=== PATIENT | female | born 1985 | race Caucasian/White ===

== ENCOUNTER 2017-07-04 21:49 | Inpatient (IN) | payer BC ==
[2017-07-04] MEDS ORDERED: Lidocaine 1% 50 ML MDV INJECT PRN (22:18)
[2017-07-04] MEDS ORDERED: Nalbuphine 10 MG/1 ML Vial IVPUSH PRN (22:18)
[2017-07-04] MEDS ORDERED: Misoprostol 200 MCG Tab PO PRN (22:18)
[2017-07-04] MEDS ORDERED: Sodium Chloride 0.9% 10 ML Syringe FLUSH PRN (22:18)
[2017-07-04] MEDS ORDERED: Sodium Chloride 0.9% 2.5 ML Syringe FLUSH PRN (22:18)
[2017-07-04] MEDS ORDERED: Butorphanol 1 MG/ML SDV IVPUSH PRN (22:18)
[2017-07-04] MEDS ORDERED: Tranexamic Acid 1,000 MG in Sodium Chloride 0.9% 100 ML IV PRN (22:18)
[2017-07-04] MEDS ORDERED: Carboprost Tromethamine 250 MCG/1 ML Amp IM PRN (22:18)
[2017-07-04] MEDS ORDERED: Water For Irrigation,Sterile 1,000 ML Container IRR PRN (22:18)
[2017-07-04] MEDS ORDERED: Methylergonovine 0.2 MG/1 ML Amp IM PRN (22:18)
[2017-07-04] MEDS ORDERED: Terbutaline 1 MG/ML SDV SUBCUT PRN (22:18)
[2017-07-04] MEDS ORDERED: Oxytocin/0.9 % Sodium Chloride 30 UNIT/500 ML BAG IV SCH ×2 (22:30)
[2017-07-04] MEDS ORDERED: Misoprostol 25 MCG (1/4 of 100 MCG) Tab VAG SCH (22:30)
[2017-07-05] MEDS ORDERED: Misoprostol 25 MCG (1/4 of 100 MCG) Tab VAG PRN (05:00)
[2017-07-05] MEDS: Lactated Ringers 1,000 ML IV SCH ×4 (05:45→20:08)
--- NOTE | 2017-07-05 12:22 | PCM.PREANE ---
Preanesthetic Assessment - Anesthesia/Transfusion/Family Hx Anesthesia History: Prior Anesthesia Without Reaction Family History of Anesthesia Reaction: Other (see below) (brother "in law" (so not genetically related) from sedation starting with a "p" while undergoing an AVM repair - pt states that anesthesia just makes her nervious d/ t this situation) Transfusion History: No Prior Transfusion(s) Intubation History: Unknown - Review of Systems General: No Symptoms Pulmonary: No Symptoms Cardiovascular: Other (htn with ) Gastrointestinal: No Symptoms Neurological: No Symptoms Other: Reports: Anxiety - Physical Assessment NPO Status Date: 07/05/17 NPO Status Time: 13:10 (sips/chips) Blood Pressure: 155/87 Height: 5 ft 3 in Weight: 209 lb ASA Class: 2 Mental Status: Alert & Oriented x3 Airway Class: Mallampati = 2 Dentition: Reports: Normal Dentition Thyro-Mental Finger Breadths: 3 Mouth Opening Finger Breadths: 3 ROM/Head Extension: Full Lungs: Clear to Auscultation, Normal Respiratory Effort Cardiovascular: Regular Rate, Regular Rhythm - Lab Values: Laboratory Last Values WBC 10.64 K/uL (4.0-11.0) 07/04/17 22:35 RBC 3.71 M/uL (4.30-5.90) L 07/04/17 22:35 Hgb 11.0 g/dL (12.0-16.0) L 07/04/17 22:35 Hct 32.9 % (36.0-46.0) L 07/04/17 22:35 MCV 88.7 fL (80.0-98.0) 07/04/17 22:35 MCH 29.6 pg (27.0-32.0) 07/04/17 22:35 MCHC 33.4 g/dL (31.0-37.0) 07/04/17 22:35 RDW Std Deviation 45.4 fl (28.0-62.0) 07/04/17 22:35 RDW Coeff of Janna 14 % (11.0-15.0) 07/04/17 22:35 Plt Count 180 K/uL (150-400) 07/04/17 22:35 MPV 12.00 fL (7.40-12.00) 07/04/17 22:35 Nucleated RBC % 0.0 /100WBC 07/04/17 22:35 Nucleated RBCs # 0 K/uL 07/04/17 22:35 Blood Type O POSITIVE 07/04/17 22:35 Antibody Screen NEGATIVE 07/04/17 22:35 - Allergies Allergies/Adverse Reactions: Allergies Allergy/AdvReac Type Severity Reaction Status Date / Time No Known Allergies Allergy Verified 07/04/17 22:17 - Blood Blood Available: No Product(s) Available: None - Anesthesia Plan Free Text/Narrative:: Labor Epidural - Acknowledgements Pt an Appropriate Candidate for the Planned Anesthesia: Yes Alternatives and Risks of Anesthesia Discussed w Pt/Guardian: Yes Pt/Guardian Understands and Agrees with Anesthesia Plan: Yes PreAnesthesia Questionnaire HEENT History: Reports: None Cardiovascular History: Reports: Hypertension 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: Musculoskeletal History: Reports: None Psychiatric History: Reports: Anxiety - Past Surgical History HEENT Surgical History: Reports: Oral Surgery Cardiovascular Surgical History: Reports: None Musculoskeletal Surgical History: Reports: Other (See Below) Other Musculoskeletal Surgeries/Procedures:: bunionectomy - SUBSTANCE USE Smoking Status *Q: Former Smoker Tobacco Use Within Last Twelve Months: Cigarettes Days Per Week of Alcohol Use: 1 Number of Drinks Per Day: 4 Total Drinks Per Week: 4 Recreational Drug Use History: No - HOME MEDS Home Medications: Home Meds PNV95/Ferrous Fumarate/FA [ Tablet] 1 tab PO DAILY 07/04/17 [History] - CURRENT (IN HOUSE) MEDS Current Meds: Current Medications Butorphanol Tartrate (Stadol) 1 mg IVPUSH Q1H PRN PRN Reason: Pain Carboprost Tromethamine (Hemabate Ds) 250 mcg IM ASDIRECTED PRN PRN Reason: Post Hemorrhage Lactated Ringer's (Ringers, Lactated) 1,000 mls @ 150 mls/hr IV ASDIRECTED NICOLE Last Admin: 07/05/17 05:45 Dose: 150 mls/hr Oxytocin/Sodium Chloride (Oxytocin 30 Unit/500 Ml-Ns) 30 unit in 500 mls @ 999 mls/hr IV TITRATE NICOLE Oxytocin/Sodium Chloride (Oxytocin 30 Unit/500 Ml-Ns) 30 unit in 500 mls @ 2 mls/hr IV TITRATE NICOLE; Protocol Last Titration: 07/05/17 10:54 Dose: 4 munits/min, 4 mls/hr Tranexamic Acid 1,000 mg/ (Sodium Chloride) 110 mls @ 660 mls/hr IV ONETIME PRN PRN Reason: Bleeding Lidocaine HCl (Xylocaine 1%) 50 ml INJECT .ONCE PRN PRN Reason: Laceration repair Methylergonovine Maleate (Methergine) 0.2 mg IM ASDIRECTED PRN PRN Reason: Post Hemorrhage Misoprostol (Cytotec) 200 mcg PO .ONCE PRN PRN Reason: Post Hemorrhage Misoprostol (Cytotec) 25 mcg VAG .ONCE NICOLE Last Admin: 07/04/17 23:04 Dose: 25 mcg Misoprostol (Cytotec) 25 mcg VAG Q6H PRN PRN Reason: Cervical Ripening Nalbuphine HCl (Nubain) 10 mg IVPUSH Q1H PRN PRN Reason: Pain (severe 7-10) Sodium Chloride (Saline Flush) 10 ml FLUSH ASDIRECTED PRN PRN Reason: Keep Vein Open Sodium Chloride (Saline Flush) 2.5 ml FLUSH ASDIRECTED PRN PRN Reason: Keep Vein Open Sterile Water (Sterile Water For Irrigation) 1,000 ml IRR ASDIRECTED PRN PRN Reason: delivery Terbutaline Sulfate (Brethine) 0.25 mg SUBCUT ASDIRECTED PRN PRN Reason: Tacysystole
[2017-07-05] MEDS ORDERED: fentaNYL 100 MCG/2 ML SDV ONE (12:24)
--- NOTE | 2017-07-05 20:50 | PCM.SN ---
- Free Text/Narrative Note: Pt using PCEA bolus frequently. c/o pain around T12 flank area. Level noted to be T 10 bilat. rate increased to 9ml/hr with bolus option of 5 ml/10 min hourly limit of 32 ml.
[2017-07-06] MEDS: Lactated Ringers 1,000 ML IV SCH (00:12)
[2017-07-06] MEDS ORDERED: Morphine PF 1 MG/ML Amp ONE (01:10)
[2017-07-06] MEDS ORDERED: fentaNYL 100 MCG/2 ML SDV ONE ×2 (01:10→02:08)
[2017-07-06] MEDS ORDERED: ePHEDrine 50 MG/ML SDV ONE (01:11)
[2017-07-06] MEDS ORDERED: EPINEPHrine 1 MG/ML SDV ONE (01:11)
[2017-07-06] MEDS ORDERED: Oxytocin 10 Units/1 ML SDV ONE (01:11)
[2017-07-06] MEDS ORDERED: Bupivacaine 0.5% 10 ML SDV ONE (01:17)
[2017-07-06] MEDS ORDERED: Carboprost Tromethamine 250 MCG/1 ML Amp ONE (01:43)
[2017-07-06] MEDS ORDERED: Phenylephrine/Normal Saline 100 MCG/ML 10 ML Syringe ONE (02:07)
[2017-07-06] MEDS ORDERED: Midazolam 1 MG/ML 2 ML SDV ONE (02:08)
[2017-07-06] MEDS ORDERED: Meperidine PF 25 MG/ML Syringe ONE (02:11)
[2017-07-06] MEDS ORDERED: Acetaminophen/oxyCODONE 325-5 MG Tab PO PRN ×2 (02:44→02:49)
[2017-07-06] MEDS ORDERED: Nalbuphine 10 MG/1 ML Vial IVPUSH PRN (02:46)
[2017-07-06] MEDS ORDERED: fentaNYL 100 MCG/2 ML SDV IVPUSH PRN (02:46)
[2017-07-06] MEDS ORDERED: Ondansetron 4 MG/2 ML SDV IV PRN (02:49)
[2017-07-06] MEDS ORDERED: Sodium Chloride 0.9% 10 ML Syringe FLUSH PRN (02:49)
[2017-07-06] MEDS ORDERED: Bisacodyl 10 MG Supp RECTAL PRN (02:49)
[2017-07-06] MEDS ORDERED: diphenhydrAMINE 50 MG/ML SDV IVPUSH PRN (02:49)
[2017-07-06] MEDS ORDERED: Lanolin 100% Cream 7 GM Tube TOP PRN (02:49)
[2017-07-06] MEDS ORDERED: Sodium Chloride 0.9% 2.5 ML Syringe FLUSH PRN (02:49)
[2017-07-06] MEDS ORDERED: Lactated Ringers 1,000 ML IV SCH (03:00)
[2017-07-06] MEDS ORDERED: Ketorolac 30 MG/ML SDV ONE (03:04)
--- NOTE | 2017-07-06 03:04 | PCM.OPNOTE ---
- General Post-Op/Procedure Note Date of Surgery/Procedure: 07/06/17 Operative Procedure(s): Emergency Primary section Findings: Male, Wt 3580grams, Apgars 7 and 9. Grossly normal placenta with 3 vessel cord. Normal appearing uterus, tubes and ovaries Pre Op Diagnosis: 38 weeks gestation,. Arrest of dilatation. Gestational Hypertension. Polyhydramnios Post-Op Diagnosis: Same Anesthesia Technique: Epidural Primary Surgeon: Shira Feliciano Fluid Replacement, Intraop: 1,000 Output, Urine Amount: 500 EBL in mLs: 700 Complications: None Condition: Good Free Text/Narrative:: Intake & Output 07/05/17 07/05/17 07/06/17 14:59 22:59 06:59 Output Total 500 Balance -500
--- NOTE | 2017-07-06 03:07 | PCM.POSTAN ---
POST ANESTHESIA ASSESSMENT - MENTAL STATUS Mental Status: Alert, Oriented - VITAL SIGNS Pulse Rate: 105 SaO2: 98 Resp Rate: 10 Blood Pressure: 118/73 - RESPIRATORY Respiratory Status: Respiratory Rate WNL, Airway Patent, O2 Saturation Stable - CARDIOVASCULAR CV Status: Pulse Rate WNL, Blood Pressure Stable - GASTROINTESTINAL GI Status: No Symptoms - PAIN Pain Score: 0 - POST OP HYDRATION Hydration Status: Adequate & Stable (epidural level T5, moves legs)
[2017-07-06] MEDS: Ketorolac 30 MG/ML SDV IVPUSH SCH ×4 (03:14→21:13)
--- NOTE | 2017-07-06 04:21 | OR ---
SURGEON: Shira Felciiano MD DATE OF PROCEDURE: 07/06/2017 PREOPERATIVE DIAGNOSES: 1. Term at 38 weeks' gestation. 2. Arrest of dilatation. 3. Gestational hypertension. 4. Polyhydramnios. POSTOPERATIVE DIAGNOSES: 1. Term at 38 weeks' gestation. 2. Arrest of dilatation. 3. Gestational hypertension. 4. Polyhydramnios. 5. Delivered. ANESTHESIA: Epidural. ESTIMATED BLOOD LOSS: 700 mL. IV FLUIDS: 1000 mL intraoperatively, crystalloid. URINE OUTPUT: 500 mL, slightly blood tinged at the end of the procedure. COMPLICATIONS: None. DISPOSITION: The patient stable to recovery room. FINDINGS: Male , weight 3580 g, scores of 7 and 9 at 1 and 5 minutes respectively. Normal uterus, tubes, and ovaries. Grossly normal placenta with 3-vessel cord. INDICATION: The patient is a 32-year-old primigravida, who was admitted at 37 weeks and 5 days for induction of labor secondary to gestational hypertension with negative preeclampsia evaluation.Her course was also complicated by polyhydramnios, which had resolved spontaneously. GBS was negative. She received a few doses of Cytotec and also had the Dowling balloon placed for cervical ripening, which was then followed with oxytocin. She made slow progress to 6 cm, where she stalled for more than 6 hours despite adequate contractions with an IUPC on maximum dose 34 milliunits per minute of oxytocin. head was in ROT position and asynclitic. heart tracing alternated between Category 1 and 2, but on the most part remained a Category 1. Although her blood pressures were labile, they were never in the severe range requiring antihypertensives and she remained asymptomatic She for preeclampsia during the intrapartum period. section was called for arrest of dilatation. Risks of the procedure were reviewed and appropriate consents were obtained from the patient. DESCRIPTION OF PROCEDURE: The patient was taken to the operating room, where her epidural was found to be adequate. She was then prepped and draped in a normal sterile fashion in dorsal supine position with a leftward tilt. She received Ancef 2 g, SCDs in place and appropriate time-out was held. A Pfannenstiel skin incision was made with a scalpel and carried through to the underlying layer of the fascia with the Bovie. The fascia was then incised in the midline and extended laterally with the Bovie. The superior aspect of this fascial incision was grasped with Dallas clamps, elevated, and the rectus muscle dissected off with the Bovie. Attention was then turned to the inferior aspect of this incision, which in similar fashion was grasped, tented up with the Dallas clamps, and underlying rectus muscles were dissected off with the Bovie. The rectus muscle was in the midline and the parietal peritoneum was identified and entered bluntly. The peritoneal defect was then extended laterally by stretching. A self-retaining Valentín O retractor was placed into the abdominal cavity. The vesicouterine peritoneum was identified, grasped with pickups, and entered sharply with the Metzenbaum scissors. This incision was extended laterally and a bladder flap was created digitally. The lower uterine segment was then incised in a transverse fashion with the scalpel. The uterine incision was extended upwards and downwards bluntly. The infant head was lifted out of the pelvis and then delivered with the aid of a kiwi vacuum, followed by the shoulders and the rest of the baby delivered atraumatically. The cord was double clamped and cut, and the infant was handed over to the waiting lugger, Dr. Steve. Cord gas and cord blood samples were collected. The placenta was delivered by controlled cord traction and massage. The uterus was cleaned of all clots and debris. The hysterotomy was repaired in two layers using 0 Vicryl suture, the first layer was repaired in a running locked fashion and a second imbricating layer was performed to obtain excellent hemostasis. One hemostatic figure-of- eight stitch was placed midway in the lower uterine segment to control a bleeder The hysterotomy site was hemostatic thereafter. The pericolic gutters were cleaned of all clots and debris. The Valentín O retractor was removed. The peritoneal edges were identified and the peritoneum was closed with 2-0 Vicryl sutures in a running fashion. The muscular layer was reapproximated with mattress sutures. The subfascial tissues were examined and found to have excellent hemostasis. The fascia was then reapproximated with 0 Vicryl in a running fashion. The subcuticular tissue was irrigated and made hemostatic with electrocautery. The skin was closed with subcuticular stitches using 4-0 Monocryl suture. The patient tolerated the procedure well. Sponge, instrument, and needle counts were correct at the end of the procedure. The patient was taken to the recovery in a stable condition and baby to nursery in stable condition. ADUMVIV / MAZINL /[id number] MTDD
[2017-07-06] MEDS: Docusate Sodium 100 MG Cap PO SCH ×2 (09:30→21:14)
--- NOTE | 2017-07-06 10:29 | PCM48HPAN ---
Post Anesthesia Note - EVALUATION WITHIN 48HRS OF ANESTHETIC Vital Signs in Normal Range: Yes Patient Participated in Evaluation: Yes Respiratory Function Stable: Yes Airway Patent: Yes Cardiovascular Function Stable: Yes Hydration Status Stable: Yes Pain Control Satisfactory: Yes Nausea and Vomiting Control Satisfactory: Yes Mental Status Recovered: Yes Pulse Rate: 105 Resp Rate: 17 Blood Pressure: 118/73
[2017-07-07] MEDS: Ketorolac 30 MG/ML SDV IVPUSH SCH (03:11)
[2017-07-07 06:03] LABS: CHLORIDE,CL 105 mmol/L (98-107); SODIUM,NA 136 mmol/L (136-145)
--- NOTE | 2017-07-07 07:24 | PCM.PNPP ---
- General Info Date of Service: 07/07/17 Admission Dx/Problem (Free Text): 32 yo P1 s/p primary for AOD , POD 1 , stable Subjective Update: Patient denies any complains. she is ambulating , voiding and tolerating regular diet. Normal lochia Labs reviewed this AM K: 3.2 Functional Status: Reports: Pain Controlled, Tolerating Diet, Ambulating, Urinating - Review of Systems General: Reports: No Symptoms HEENT: Reports: No Symptoms Pulmonary: Reports: No Symptoms Cardiovascular: Reports: No Symptoms Gastrointestinal: Reports: No Symptoms Genitourinary: Reports: No Symptoms Musculoskeletal: Reports: No Symptoms Skin: Reports: No Symptoms Neurological: Reports: No Symptoms Psychiatric: Reports: No Symptoms - General Info Date of Service: 07/07/17 - Patient Data Vital Signs - Most Recent: Last Vital Signs Temp 36.6 C 07/07/17 06:00 Pulse 97 07/07/17 06:00 Resp 16 07/07/17 06:00 BP 144/90 H 07/07/17 06:00 Pulse Ox 98 07/07/17 06:00 Weight - Most Recent: 94.801 kg I&O - Last 24 Hours: Intake & Output 07/06/17 07/07/17 07/07/17 22:59 06:59 14:59 Output Total 700 Balance -700 Lab Results - Last 24 Hours: Laboratory Results - last 24 hr 07/07/17 07/07/17 Range/Units 05:27 05:27 WBC 11.60 H (4.0-11.0) K/uL RBC 2.78 L (4.30-5.90) M/uL Hgb 8.2 L (12.0-16.0) g/dL Hct 24.8 L (36.0-46.0) % MCV 89.2 (80.0-98.0) fL MCH 29.5 (27.0-32.0) pg MCHC 33.1 (31.0-37.0) g/dL RDW Std Deviation 47.6 (28.0-62.0) fl RDW Coeff of Janna 15 (11.0-15.0) % Plt Count 166 (150-400) K/uL MPV 10.90 (7.40-12.00) fL Nucleated RBC % 0.0 /100WBC Nucleated RBCs # 0 K/uL Sodium 136 (136-145) mmol/L Potassium 3.2 L (3.5-5.1) mmol/L Chloride 105 (98-107) mmol/L Carbon Dioxide 23.5 (21.0-32.0) mmol/L BUN 12 (7.0-18.0) mg/dL Creatinine 1.0 (0.6-1.0) mg/dL Est Cr Clr Drug Dosing 66.81 mL/min Estimated GFR (MDRD) > 60.0 ml/min Glucose 73 L (74-106) mg/dL Calcium 7.9 L (8.5-10.1) mg/dL Total Bilirubin 0.2 (0.2-1.0) mg/dL AST 33 (15-37) IU/L ALT 12 L (14-63) IU/L Alkaline Phosphatase 87 (46-116) U/L Total Protein 5.0 L (6.4-8.2) g/dL Albumin 1.9 L (3.4-5.0) g/dL Globulin 3.1 (2.0-3.5) g/dL Albumin/Globulin Ratio 0.6 L (1.3-2.8) Med Orders - Current: Current Medications Bisacodyl (Dulcolax) 10 mg RECTAL .ONCE PRN PRN Reason: Constipation Diphenhydramine HCl (Benadryl) 25 mg IVPUSH Q6H PRN PRN Reason: Itching or Nausea Docusate Sodium (Colace) 100 mg PO BID [facility] Last Admin: 07/06/17 21:14 Dose: 100 mg Emollient Ointment (Lansinoh Hpa) 0 gm TOP ASDIRECTED PRN PRN Reason: Sore Nipples Lactated Ringer's (Ringers, Lactated) 1,000 mls @ 125 mls/hr IV ASDIRECTED [facility] Ibuprofen (Motrin) 800 mg PO Q8H PRN PRN Reason: mild pain or fever Ondansetron HCl (Zofran) 4 mg IV Q4H PRN PRN Reason: Nausea/Vomiting Oxycodone/Acetaminophen (Percocet 325-5 Mg) 1 tab PO Q4H PRN PRN Reason: Pain (moderate 4-6) Oxycodone/Acetaminophen (Percocet 325-5 Mg) 2 tab PO Q4H PRN PRN Reason: Pain (moderate 4-6) Potassium Chloride (Klor-Con M20) 20 meq PO BID [facility] Stop: 07/07/17 21:01 Sodium Chloride (Saline Flush) 10 ml FLUSH ASDIRECTED PRN PRN Reason: Keep Vein Open Sodium Chloride (Saline Flush) 2.5 ml FLUSH ASDIRECTED PRN PRN Reason: Keep Vein Open Discontinued Medications Bupivacaine HCl (Sensorcaine-Mpf 0.5%) Confirm Administered Dose 30 ml .ROUTE .STK-MED ONE Stop: 07/06/17 01:18 Last Admin: 07/06/17 04:03 Dose: Not Given Butorphanol Tartrate (Stadol) 1 mg IVPUSH Q1H PRN PRN Reason: Pain Carboprost Tromethamine (Hemabate Ds) 250 mcg IM ASDIRECTED PRN PRN Reason: Post Hemorrhage Carboprost Tromethamine (Hemabate Ds) Confirm Administered Dose 250 mcg .ROUTE .STK-MED ONE Stop: 07/06/17 01:44 Ephedrine Sulfate (Ephedrine Sulfate) Confirm Administered Dose 50 mg .ROUTE .STK-MED ONE Stop: 07/06/17 01:12 Epinephrine HCl (Adrenalin) Confirm Administered Dose 1 mg .ROUTE .STK-MED ONE Stop: 07/06/17 01:12 Fentanyl (Sublimaze) Confirm Administered Dose 100 mcg .ROUTE .STK-MED ONE Stop: 07/05/17 12:25 Last Admin: 07/05/17 20:22 Dose: Not Given Fentanyl (Sublimaze) Confirm Administered Dose 100 mcg .ROUTE .STK-MED ONE Stop: 07/06/17 01:11 Fentanyl (Sublimaze) Confirm Administered Dose 100 mcg .ROUTE .STK-MED ONE Stop: 07/06/17 02:09 Fentanyl (Sublimaze) 50 mcg IVPUSH Q5M PRN PRN Reason: Pain (severe 7-10) Stop: 07/06/17 04:00 Lactated Ringer's (Ringers, Lactated) 1,000 mls @ 150 mls/hr IV ASDIRECTED NICOLE Last Admin: 07/06/17 00:12 Dose: 150 mls/hr Oxytocin/Sodium Chloride (Oxytocin 30 Unit/500 Ml-Ns) 30 unit in 500 mls @ 999 mls/hr IV TITRATE NICOLE Oxytocin/Sodium Chloride (Oxytocin 30 Unit/500 Ml-Ns) 30 unit in 500 mls @ 2 mls/hr IV TITRATE [facility]; Protocol Last Titration: 07/05/17 22:19 Dose: 34 munits/min, 34 mls/hr Tranexamic Acid 1,000 mg/ (Sodium Chloride) 110 mls @ 660 mls/hr IV ONETIME PRN PRN Reason: Bleeding Fentanyl/Bupivacaine HCl (Myboawhr-Hlwyc-Vt 2 Mcg/Ml-0.125%) Confirm Administered Dose 100 mls @ as directed EP .STK-MED ONE Stop: 07/05/17 12:25 Last Admin: 07/05/17 20:22 Dose: Not Given Fentanyl/Bupivacaine HCl (Lhjlnifq-Cffkw-Am 2 Mcg/Ml-0.125%) Confirm Administered Dose 100 mls @ as directed EP .STK-MED ONE Stop: 07/05/17 20:37 Last Admin: 07/05/17 22:11 Dose: Not Given Ketorolac Tromethamine (Toradol) 30 mg IVPUSH Q6H [facility] Stop: 07/07/17 03:01 Last Admin: 07/07/17 03:11 Dose: 30 mg Ketorolac Tromethamine (Toradol) Confirm Administered Dose 30 mg .ROUTE .STK- MED ONE Stop: 07/06/17 03:05 Last Admin: 07/06/17 04:03 Dose: Not Given Lidocaine HCl (Xylocaine 1%) 50 ml INJECT .ONCE PRN PRN Reason: Laceration repair Meperidine HCl (Demerol) Confirm Administered Dose 25 mg .ROUTE .STK-MED ONE Stop: 07/06/17 02:12 Methylergonovine Maleate (Methergine) 0.2 mg IM ASDIRECTED PRN PRN Reason: Post Hemorrhage Midazolam HCl (Versed 1 Mg/Ml) Confirm Administered Dose 2 mg .ROUTE .STK-MED ONE Stop: 07/06/17 02:09 Misoprostol (Cytotec) 200 mcg PO .ONCE PRN PRN Reason: Post Hemorrhage Misoprostol (Cytotec) 25 mcg VAG .ONCE NICOLE Last Admin: 07/04/17 23:04 Dose: 25 mcg Misoprostol (Cytotec) 25 mcg VAG Q6H PRN PRN Reason: Cervical Ripening Morphine Sulfate (Duramorph Pf) Confirm Administered Dose 1 mg .ROUTE .STK-MED ONE Stop: 07/06/17 01:11 Nalbuphine HCl (Nubain) 10 mg IVPUSH Q1H PRN PRN Reason: Pain (severe 7-10) Nalbuphine HCl (Nubain) 5 mg IVPUSH Q3H PRN PRN Reason: Pruritis Stop: 07/07/17 02:46 Oxycodone/Acetaminophen (Percocet 325-5 Mg) 1 tab PO Q6H PRN PRN Reason: Pain (moderate 4-6) Stop: 07/07/17 02:44 Oxytocin (Pitocin) Confirm Administered Dose 20 unit .ROUTE .STK-MED ONE Stop: 07/06/17 01:12 Phenylephrine HCl (Phenylephrine In Ns 100 Mcg/Ml) Confirm Administered Dose 1 mg .ROUTE .STK-MED ONE Stop: 07/06/17 02:08 Sodium Chloride (Saline Flush) 10 ml FLUSH ASDIRECTED PRN PRN Reason: Keep Vein Open Sodium Chloride (Saline Flush) 2.5 ml FLUSH ASDIRECTED PRN PRN Reason: Keep Vein Open Sterile Water (Sterile Water For Irrigation) 1,000 ml IRR ASDIRECTED PRN PRN Reason: delivery Terbutaline Sulfate (Brethine) 0.25 mg SUBCUT ASDIRECTED PRN PRN Reason: Tacysystole - Infant Interaction Infant Disposition, : at Bedside Interaction: Holding Infant Feeding: Continues to Breastfeed Support Person: - Recovery Exam Fundal Tone: Firm Fundal Level: At Umbilicus Fundal Placement: Midline Lochia Amount: Scant Lochia Color: Rubra/Red Perineum Description: Intact, Minimal Bruising/Swelling Episiotomy/Laceration: None Bladder Status: Voiding Urinary Elimination: Indwelling Catheter - Exam General: Alert, Oriented HEENT: Pupils Equal Lungs: Clear to Auscultation Cardiovascular: Regular Rate, Regular Rhythm GI/Abdominal Exam: Normal Bowel Sounds (Pfannestiel skin incision with c/d/i ) Extremities: Normal Inspection Skin: Warm Neurological: No New Focal Deficit Psy/Mental Status: Alert - Problem List & Annotations (1) delivery delivered SNOMED Code(s): 159082951 Code(s): O82 - ENCOUNTER FOR DELIVERY WITHOUT INDICATION Status: Acute Current Visit: Yes - Problem List Review Problem List Initiated/Reviewed/Updated: Yes - My Orders Last 24 Hours: My Active Orders 07/07/17 09:00 Potassium Chloride [Klor-Con M20] 20 meq PO BID - Assessment Assessment:: 32 yo P1 s/p primary for arrest of dilatation, Gestational Hypertension, Normal Lochia - Plan Plan:: Will replace potassium Pain control as needed Encourage ambulation Regular diet
[2017-07-07] MEDS: Docusate Sodium 100 MG Cap PO SCH ×2 (10:15→22:25)
[2017-07-07] MEDS: Potassium Chloride 20 MEQ Tab.ER PO SCH ×2 (10:15→22:27)
[2017-07-07] MEDS: Ibuprofen 800 MG Tab PO PRN (16:45)
[2017-07-07] MEDS: Acetaminophen/oxyCODONE 325-5 MG Tab PO PRN (22:25)
[2017-07-08] MEDS: Acetaminophen/oxyCODONE 325-5 MG Tab PO PRN ×2 (07:30→16:04)
[2017-07-08] MEDS: Docusate Sodium 100 MG Cap PO SCH (09:01)
[2017-07-08] MEDS ORDERED: Furosemide 20 MG Tab PO ONE (10:29)
--- NOTE | 2017-07-08 10:29 | PCM.PNPP ---
- General Info Date of Service: 07/08/17 Functional Status: Reports: Pain Controlled, Tolerating Diet, Ambulating, Urinating - Review of Systems General: Reports: Fatigue. Denies: Fever, Weakness Pulmonary: Denies: Shortness of Breath Cardiovascular: Denies: Chest Pain, Palpitations, Lightheadedness Gastrointestinal: Denies: Abdominal Pain, Nausea, Vomiting Genitourinary: Denies: Flank Pain Psychiatric: Reports: No Symptoms - General Info Date of Service: 07/08/17 - Patient Data Vital Signs - Most Recent: Last Vital Signs Temp 36.8 C 07/08/17 07:41 Pulse 92 07/08/17 07:41 Resp 17 07/08/17 07:41 BP 143/99 H 07/08/17 09:43 Pulse Ox 98 07/08/17 07:41 Weight - Most Recent: 94.801 kg Med Orders - Current: Current Medications Bisacodyl (Dulcolax) 10 mg RECTAL .ONCE PRN PRN Reason: Constipation Diphenhydramine HCl (Benadryl) 25 mg IVPUSH Q6H PRN PRN Reason: Itching or Nausea Docusate Sodium (Colace) 100 mg PO BID NICOLE Last Admin: 07/08/17 09:01 Dose: 100 mg Emollient Ointment (Lansinoh Hpa) 0 gm TOP ASDIRECTED PRN PRN Reason: Sore Nipples Lactated Ringer's (Ringers, Lactated) 1,000 mls @ 125 mls/hr IV ASDIRECTED NICOLE Ibuprofen (Motrin) 800 mg PO Q8H PRN PRN Reason: mild pain or fever Last Admin: 07/07/17 16:45 Dose: 800 mg Ondansetron HCl (Zofran) 4 mg IV Q4H PRN PRN Reason: Nausea/Vomiting Oxycodone/Acetaminophen (Percocet 325-5 Mg) 1 tab PO Q4H PRN PRN Reason: Pain (moderate 4-6) Last Admin: 07/08/17 07:30 Dose: 1 tab Oxycodone/Acetaminophen (Percocet 325-5 Mg) 2 tab PO Q4H PRN PRN Reason: Pain (moderate 4-6) Sodium Chloride (Saline Flush) 10 ml FLUSH ASDIRECTED PRN PRN Reason: Keep Vein Open Sodium Chloride (Saline Flush) 2.5 ml FLUSH ASDIRECTED PRN PRN Reason: Keep Vein Open Discontinued Medications Bupivacaine HCl (Sensorcaine-Mpf 0.5%) Confirm Administered Dose 30 ml .ROUTE .STK-MED ONE Stop: 07/06/17 01:18 Last Admin: 07/06/17 04:03 Dose: Not Given Butorphanol Tartrate (Stadol) 1 mg IVPUSH Q1H PRN PRN Reason: Pain Carboprost Tromethamine (Hemabate Ds) 250 mcg IM ASDIRECTED PRN PRN Reason: Post Hemorrhage Carboprost Tromethamine (Hemabate Ds) Confirm Administered Dose 250 mcg .ROUTE .STK-MED ONE Stop: 07/06/17 01:44 Ephedrine Sulfate (Ephedrine Sulfate) Confirm Administered Dose 50 mg .ROUTE .STK-MED ONE Stop: 07/06/17 01:12 Epinephrine HCl (Adrenalin) Confirm Administered Dose 1 mg .ROUTE .STK-MED ONE Stop: 07/06/17 01:12 Fentanyl (Sublimaze) Confirm Administered Dose 100 mcg .ROUTE .STK-MED ONE Stop: 07/05/17 12:25 Last Admin: 07/05/17 20:22 Dose: Not Given Fentanyl (Sublimaze) Confirm Administered Dose 100 mcg .ROUTE .STK-MED ONE Stop: 07/06/17 01:11 Fentanyl (Sublimaze) Confirm Administered Dose 100 mcg .ROUTE .STK-MED ONE Stop: 07/06/17 02:09 Fentanyl (Sublimaze) 50 mcg IVPUSH Q5M PRN PRN Reason: Pain (severe 7-10) Stop: 07/06/17 04:00 Lactated Ringer's (Ringers, Lactated) 1,000 mls @ 150 mls/hr IV ASDIRECTED NICOLE Last Admin: 07/06/17 00:12 Dose: 150 mls/hr Oxytocin/Sodium Chloride (Oxytocin 30 Unit/500 Ml-Ns) 30 unit in 500 mls @ 999 mls/hr IV TITRATE NICOLE Oxytocin/Sodium Chloride (Oxytocin 30 Unit/500 Ml-Ns) 30 unit in 500 mls @ 2 mls/hr IV TITRATE NICOLE; Protocol Last Titration: 07/05/17 22:19 Dose: 34 munits/min, 34 mls/hr Tranexamic Acid 1,000 mg/ (Sodium Chloride) 110 mls @ 660 mls/hr IV ONETIME PRN PRN Reason: Bleeding Fentanyl/Bupivacaine HCl (Oziiuawv-Lzrul-Ps 2 Mcg/Ml-0.125%) Confirm Administered Dose 100 mls @ as directed EP .STK-MED ONE Stop: 07/05/17 12:25 Last Admin: 07/05/17 20:22 Dose: Not Given Fentanyl/Bupivacaine HCl (Wpcpeass-Emmou-Wh 2 Mcg/Ml-0.125%) Confirm Administered Dose 100 mls @ as directed EP .STK-MED ONE Stop: 07/05/17 20:37 Last Admin: 07/05/17 22:11 Dose: Not Given Ketorolac Tromethamine (Toradol) 30 mg IVPUSH Q6H [facility] Stop: 07/07/17 03:01 Last Admin: 07/07/17 03:11 Dose: 30 mg Ketorolac Tromethamine (Toradol) Confirm Administered Dose 30 mg .ROUTE .STK- MED ONE Stop: 07/06/17 03:05 Last Admin: 07/06/17 04:03 Dose: Not Given Lidocaine HCl (Xylocaine 1%) 50 ml INJECT .ONCE PRN PRN Reason: Laceration repair Meperidine HCl (Demerol) Confirm Administered Dose 25 mg .ROUTE .STK-MED ONE Stop: 07/06/17 02:12 Methylergonovine Maleate (Methergine) 0.2 mg IM ASDIRECTED PRN PRN Reason: Post Hemorrhage Midazolam HCl (Versed 1 Mg/Ml) Confirm Administered Dose 2 mg .ROUTE .STK-MED ONE Stop: 07/06/17 02:09 Misoprostol (Cytotec) 200 mcg PO .ONCE PRN PRN Reason: Post Hemorrhage Misoprostol (Cytotec) 25 mcg VAG .ONCE NICOLE Last Admin: 07/04/17 23:04 Dose: 25 mcg Misoprostol (Cytotec) 25 mcg VAG Q6H PRN PRN Reason: Cervical Ripening Morphine Sulfate (Duramorph Pf) Confirm Administered Dose 1 mg .ROUTE .STK-MED ONE Stop: 07/06/17 01:11 Nalbuphine HCl (Nubain) 10 mg IVPUSH Q1H PRN PRN Reason: Pain (severe 7-10) Nalbuphine HCl (Nubain) 5 mg IVPUSH Q3H PRN PRN Reason: Pruritis Stop: 07/07/17 02:46 Oxycodone/Acetaminophen (Percocet 325-5 Mg) 1 tab PO Q6H PRN PRN Reason: Pain (moderate 4-6) Stop: 07/07/17 02:44 Oxytocin (Pitocin) Confirm Administered Dose 20 unit .ROUTE .STK-MED ONE Stop: 07/06/17 01:12 Phenylephrine HCl (Phenylephrine In Ns 100 Mcg/Ml) Confirm Administered Dose 1 mg .ROUTE .STK-MED ONE Stop: 07/06/17 02:08 Potassium Chloride (Klor-Con M20) 20 meq PO BID NICOLE Stop: 07/07/17 21:01 Last Admin: 07/07/17 22:27 Dose: 20 meq Sodium Chloride (Saline Flush) 10 ml FLUSH ASDIRECTED PRN PRN Reason: Keep Vein Open Sodium Chloride (Saline Flush) 2.5 ml FLUSH ASDIRECTED PRN PRN Reason: Keep Vein Open Sterile Water (Sterile Water For Irrigation) 1,000 ml IRR ASDIRECTED PRN PRN Reason: delivery Terbutaline Sulfate (Brethine) 0.25 mg SUBCUT ASDIRECTED PRN PRN Reason: Tacysystole - Infant Interaction Infant Disposition, : at Bedside Interaction: Holding Feeding: Continues to Breastfeed Support Person: - Recovery Exam Fundal Tone: Firm Fundal Level: 1 Fingerbreadths Above Umbilicus Fundal Placement: Midline Lochia Amount: None Lochia Color: Rubra/Red Perineum Description: Intact, Minimal Bruising/Swelling Episiotomy/Laceration: None Bladder Status: Nonpalpable, Voiding Urinary Elimination: Voided - Exam General: Alert, Oriented Lungs: Normal Respiratory Effort Cardiovascular: Regular Rate, Regular Rhythm GI/Abdominal Exam: Normal Bowel Sounds, Soft Extremities: Pedal Edema (2+). No: Lynette's Sign Skin: Warm, Dry, Intact Wound/Incisions: Healing Well, No Drainage. No: Erythema Neurological: No New Focal Deficit Psy/Mental Status: Alert, Anxious - Problem List & Annotations (1) delivery delivered SNOMED Code(s): 039919197 Code(s): O82 - ENCOUNTER FOR DELIVERY WITHOUT INDICATION Status: Acute Current Visit: Yes (2) Gestational hypertension SNOMED Code(s): 40295247 Code(s): O13.9 - GESTATIONAL HTN W/O SIGNIFICANT PROTEINURIA, UNSP TRIMESTER Status: Acute Current Visit: Yes - Problem List Review Problem List Initiated/Reviewed/Updated: Yes - Assessment Assessment:: 32 yo P1 s/p primary for arrest of dilatation Gestational hypertension - Plan Plan:: Blood pressures more elevated today and throughout the night. 140-150s/80-90s range. Quite edematous. Will start procardia and dose with diuretic. Continue to monitor today. Explained findings, plan of care to patient and . Questions answered. They agree to plan of care.
[2017-07-08] MEDS: NIFEdipine 30 MG Tab.ER PO SCH (10:50)
[2017-07-09] MEDS: Ibuprofen 800 MG Tab PO PRN ×2 (00:45→08:13)
[2017-07-09] MEDS: NIFEdipine 30 MG Tab.ER PO SCH (09:29)
[2017-07-09] MEDS: Docusate Sodium 100 MG Cap PO SCH (09:29)
--- NOTE | 2017-07-09 09:51 | PCM.PNPP ---
- General Info Date of Service: 07/09/17 Functional Status: Reports: Pain Controlled, Tolerating Diet, Ambulating, Urinating - Review of Systems General: Denies: Fever, Weakness Pulmonary: Denies: Shortness of Breath Cardiovascular: Denies: Chest Pain, Palpitations, Lightheadedness Gastrointestinal: Reports: Flatus. Denies: Abdominal Pain, Nausea, Vomiting Genitourinary: Denies: Dysuria, Flank Pain Psychiatric: Reports: No Symptoms - General Info Date of Service: 07/09/17 - Patient Data Vital Signs - Most Recent: Last Vital Signs Temp 36.6 C 07/09/17 08:15 Pulse 75 07/09/17 08:15 Resp 16 07/09/17 08:15 BP 140/75 07/09/17 09:29 Pulse Ox 98 07/09/17 08:15 Weight - Most Recent: 94.801 kg Med Orders - Current: Current Medications Bisacodyl (Dulcolax) 10 mg RECTAL .ONCE PRN PRN Reason: Constipation Diphenhydramine HCl (Benadryl) 25 mg IVPUSH Q6H PRN PRN Reason: Itching or Nausea Docusate Sodium (Colace) 100 mg PO BID [facility] Last Admin: 07/09/17 09:29 Dose: 100 mg Emollient Ointment (Lansinoh Hpa) 0 gm TOP ASDIRECTED PRN PRN Reason: Sore Nipples Lactated Ringer's (Ringers, Lactated) 1,000 mls @ 125 mls/hr IV ASDIRECTED [facility] Ibuprofen (Motrin) 800 mg PO Q8H PRN PRN Reason: mild pain or fever Last Admin: 07/09/17 08:13 Dose: 800 mg Nifedipine (Procardia Xl) 30 mg PO DAILY [facility] Last Admin: 07/09/17 09:29 Dose: 30 mg Ondansetron HCl (Zofran) 4 mg IV Q4H PRN PRN Reason: Nausea/Vomiting Oxycodone/Acetaminophen (Percocet 325-5 Mg) 1 tab PO Q4H PRN PRN Reason: Pain (moderate 4-6) Last Admin: 07/08/17 16:04 Dose: 1 tab Oxycodone/Acetaminophen (Percocet 325-5 Mg) 2 tab PO Q4H PRN PRN Reason: Pain (moderate 4-6) Sodium Chloride (Saline Flush) 10 ml FLUSH ASDIRECTED PRN PRN Reason: Keep Vein Open Sodium Chloride (Saline Flush) 2.5 ml FLUSH ASDIRECTED PRN PRN Reason: Keep Vein Open Discontinued Medications Bupivacaine HCl (Sensorcaine-Mpf 0.5%) Confirm Administered Dose 30 ml .ROUTE .STK-MED ONE Stop: 07/06/17 01:18 Last Admin: 07/06/17 04:03 Dose: Not Given Butorphanol Tartrate (Stadol) 1 mg IVPUSH Q1H PRN PRN Reason: Pain Carboprost Tromethamine (Hemabate Ds) 250 mcg IM ASDIRECTED PRN PRN Reason: Post Hemorrhage Carboprost Tromethamine (Hemabate Ds) Confirm Administered Dose 250 mcg .ROUTE .STK-MED ONE Stop: 07/06/17 01:44 Ephedrine Sulfate (Ephedrine Sulfate) Confirm Administered Dose 50 mg .ROUTE .STK-MED ONE Stop: 07/06/17 01:12 Epinephrine HCl (Adrenalin) Confirm Administered Dose 1 mg .ROUTE .STK-MED ONE Stop: 07/06/17 01:12 Fentanyl (Sublimaze) Confirm Administered Dose 100 mcg .ROUTE .STK-MED ONE Stop: 07/05/17 12:25 Last Admin: 07/05/17 20:22 Dose: Not Given Fentanyl (Sublimaze) Confirm Administered Dose 100 mcg .ROUTE .STK-MED ONE Stop: 07/06/17 01:11 Fentanyl (Sublimaze) Confirm Administered Dose 100 mcg .ROUTE .STK-MED ONE Stop: 07/06/17 02:09 Fentanyl (Sublimaze) 50 mcg IVPUSH Q5M PRN PRN Reason: Pain (severe 7-10) Stop: 07/06/17 04:00 Furosemide (Lasix) 20 mg PO ONETIME ONE Stop: 07/08/17 10:30 Last Admin: 07/08/17 10:50 Dose: 20 mg Lactated Ringer's (Ringers, Lactated) 1,000 mls @ 150 mls/hr IV ASDIRECTED [facility] Last Admin: 07/06/17 00:12 Dose: 150 mls/hr Oxytocin/Sodium Chloride (Oxytocin 30 Unit/500 Ml-Ns) 30 unit in 500 mls @ 999 mls/hr IV TITRATE NICOLE Oxytocin/Sodium Chloride (Oxytocin 30 Unit/500 Ml-Ns) 30 unit in 500 mls @ 2 mls/hr IV TITRATE NICOLE; Protocol Last Titration: 07/05/17 22:19 Dose: 34 munits/min, 34 mls/hr Tranexamic Acid 1,000 mg/ (Sodium Chloride) 110 mls @ 660 mls/hr IV ONETIME PRN PRN Reason: Bleeding Fentanyl/Bupivacaine HCl (Nuxasvua-Eotfs-Sl 2 Mcg/Ml-0.125%) Confirm Administered Dose 100 mls @ as directed EP .STK-MED ONE Stop: 07/05/17 12:25 Last Admin: 07/05/17 20:22 Dose: Not Given Fentanyl/Bupivacaine HCl (Haeqopyc-Sfowx-Tx 2 Mcg/Ml-0.125%) Confirm Administered Dose 100 mls @ as directed EP .STK-MED ONE Stop: 07/05/17 20:37 Last Admin: 07/05/17 22:11 Dose: Not Given Ketorolac Tromethamine (Toradol) 30 mg IVPUSH Q6H [facility] Stop: 07/07/17 03:01 Last Admin: 07/07/17 03:11 Dose: 30 mg Ketorolac Tromethamine (Toradol) Confirm Administered Dose 30 mg .ROUTE .STK- MED ONE Stop: 07/06/17 03:05 Last Admin: 07/06/17 04:03 Dose: Not Given Lidocaine HCl (Xylocaine 1%) 50 ml INJECT .ONCE PRN PRN Reason: Laceration repair Meperidine HCl (Demerol) Confirm Administered Dose 25 mg .ROUTE .STK-MED ONE Stop: 07/06/17 02:12 Methylergonovine Maleate (Methergine) 0.2 mg IM ASDIRECTED PRN PRN Reason: Post Hemorrhage Midazolam HCl (Versed 1 Mg/Ml) Confirm Administered Dose 2 mg .ROUTE .STK-MED ONE Stop: 07/06/17 02:09 Misoprostol (Cytotec) 200 mcg PO .ONCE PRN PRN Reason: Post Hemorrhage Misoprostol (Cytotec) 25 mcg VAG .ONCE NICOLE Last Admin: 07/04/17 23:04 Dose: 25 mcg Misoprostol (Cytotec) 25 mcg VAG Q6H PRN PRN Reason: Cervical Ripening Morphine Sulfate (Duramorph Pf) Confirm Administered Dose 1 mg .ROUTE .STK-MED ONE Stop: 07/06/17 01:11 Nalbuphine HCl (Nubain) 10 mg IVPUSH Q1H PRN PRN Reason: Pain (severe 7-10) Nalbuphine HCl (Nubain) 5 mg IVPUSH Q3H PRN PRN Reason: Pruritis Stop: 07/07/17 02:46 Oxycodone/Acetaminophen (Percocet 325-5 Mg) 1 tab PO Q6H PRN PRN Reason: Pain (moderate 4-6) Stop: 07/07/17 02:44 Oxytocin (Pitocin) Confirm Administered Dose 20 unit .ROUTE .STK-MED ONE Stop: 07/06/17 01:12 Phenylephrine HCl (Phenylephrine In Ns 100 Mcg/Ml) Confirm Administered Dose 1 mg .ROUTE .STK-MED ONE Stop: 07/06/17 02:08 Potassium Chloride (Klor-Con M20) 20 meq PO BID NICOLE Stop: 07/07/17 21:01 Last Admin: 07/07/17 22:27 Dose: 20 meq Sodium Chloride (Saline Flush) 10 ml FLUSH ASDIRECTED PRN PRN Reason: Keep Vein Open Sodium Chloride (Saline Flush) 2.5 ml FLUSH ASDIRECTED PRN PRN Reason: Keep Vein Open Sterile Water (Sterile Water For Irrigation) 1,000 ml IRR ASDIRECTED PRN PRN Reason: delivery Terbutaline Sulfate (Brethine) 0.25 mg SUBCUT ASDIRECTED PRN PRN Reason: Tacysystole - Infant Interaction Disposition, : at Bedside Infant Interaction: Holding Infant Feeding: Continues to Breastfeed Support Person: - Recovery Exam Fundal Tone: Firm Fundal Level: At Umbilicus Fundal Placement: Midline Lochia Amount: Scant Lochia Color: Rubra/Red Perineum Description: Intact, Minimal Bruising/Swelling Episiotomy/Laceration: None Bladder Status: Nonpalpable, Voiding Urinary Elimination: Voided - Exam General: Alert, Oriented Lungs: Clear to Auscultation, Normal Respiratory Effort Cardiovascular: Regular Rate, Regular Rhythm GI/Abdominal Exam: Normal Bowel Sounds, Soft Extremities: Pedal Edema (1+, improved today). No: Lynette's Sign Skin: Warm, Dry, Intact Wound/Incisions: Healing Well, No Drainage. No: Erythema Psy/Mental Status: Alert, Normal Affect - Problem List & Annotations (1) delivery delivered SNOMED Code(s): 223102260 Code(s): O82 - ENCOUNTER FOR DELIVERY WITHOUT INDICATION Status: Acute Current Visit: Yes (2) Gestational hypertension SNOMED Code(s): 09287462 Code(s): O13.9 - GESTATIONAL HTN W/O SIGNIFICANT PROTEINURIA, UNSP TRIMESTER Status: Acute Current Visit: Yes - Problem List Review Problem List Initiated/Reviewed/Updated: Yes - My Orders Last 24 Hours: My Active Orders 07/08/17 10:30 NIFEdipine [Procardia XL] 30 mg PO DAILY - Assessment Assessment:: 32 yo P1 s/p primary for arrest of dilatation Gestational hypertension - Plan Plan:: Patient feels well, tolerating procardia well. She denies headache or visual changes. Highest BP has been 140s/80s--majority in 120-130s systolic. Patient would like to go home today. Discharge instructions reviewed. infection and bleeding warnings reviewed. Follow up at [facility] this week for BP check, 2 and 6 weeks. PIH warnings reviewed.
[2017-07-09] MEDS ORDERED: Furosemide 20 MG Tab PO ONE (09:54)
[2017-07-09] MEDS ORDERED: Furosemide 20 MG Tab ONE (13:01)
== END 2017-07-09 13:45 | disposition home or self-care (01) | DRG 540 ==
LOC: MW.OBCHECK 21:49 → MW.OB 21:51 → MW.OBCHECK 22:18 → OBSVTOIN 07-06 01:55
PROVIDERS: ADMIT Obstetrics & Gynecology; ATTEND Obstetrics & Gynecology
PROC: 10D00Z1 Extraction of Products of Conception, Low, Open Approach (ICD-10-PCS; principal; 2017-07-06)
PROC: 3E0P7VZ Introduction of Hormone into Female Reproductive, Via Natural or Artificial Opening (ICD-10-PCS; 2017-07-06)
PROC: 3E033VJ Introduction of Other Hormone into Peripheral Vein, Percutaneous Approach (ICD-10-PCS; 2017-07-06)
PROC: 0U7C7ZZ Dilation of Cervix, Via Natural or Artificial Opening (ICD-10-PCS; 2017-07-06)
DX: O13.4 Gestational [pregnancy-induced] hypertension without significant proteinuria, complicating childbirth (principal); O40.3XX0 Polyhydramnios, third trimester, not applicable or unspecified; O62.1 Secondary uterine inertia; Z3A.38 38 weeks gestation of pregnancy; Z37.0 Single live birth
CPT/HCPCS: 01967; 36415; 51702; 59025; 80053; 82803; 85027; 86850; 86900; 86901; 88307; A9270-GY; J0171; J1885; J2175; J2250; J2274; J2590; J3010; J7120

== ENCOUNTER 2020-03-10 16:43 | Inpatient (IN) | payer BC ==
[2020-03-10] MEDS ORDERED: Sodium Chloride 0.9% 10 ML Syringe FLUSH PRN (17:33)
[2020-03-10] MEDS ORDERED: Citric Acid/Sodium Citrate Solution 30 ML Cup PO ONE (17:33)
[2020-03-10] MEDS ORDERED: Sodium Chloride 0.9% 2.5 ML Syringe FLUSH PRN (17:33)
[2020-03-10] MEDS ORDERED: ceFAZolin 2 GM in Premix Bag 1 BAG IV ONE (17:33)
[2020-03-10] MEDS ORDERED: Sodium Chloride 0.9% 10 ML SDV IV PRN (17:33)
[2020-03-10] MEDS ORDERED: Oxytocin/0.9 % Sodium Chloride 30 UNIT/500 ML BAG IV SCH (17:45)
[2020-03-10] MEDS: Lactated Ringers 1,000 ML IV SCH ×2 (18:30→19:31)
[2020-03-10] MEDS ORDERED: Ketorolac 30 MG/ML SDV IVPUSH SCH (19:00)
--- NOTE | 2020-03-10 19:04 | PCM.PREANE ---
Preanesthetic Assessment - Anesthesia/Transfusion/Family Hx Anesthesia History: Prior Anesthesia Without Reaction Family History of Anesthesia Reaction: No Transfusion History: No Prior Transfusion(s) Intubation History: Unknown - Review of Systems General: No Symptoms Pulmonary: No Symptoms Cardiovascular: No Symptoms Gastrointestinal: No Symptoms Neurological: No Symptoms Other: Reports: None - Physical Assessment Vital Signs: 146/89 HR 95 96% RA FHR 135 Height: 5 ft 2 in Weight: 92.986 kg ASA Class: 2E Mental Status: Alert & Oriented x3 Dentition: Reports: Normal Dentition ROM/Head Extension: Full Lungs: Clear to Auscultation, Normal Respiratory Effort Cardiovascular: Regular Rate, Regular Rhythm - Lab Values: Laboratory Last Values SARS-CoV-2 RNA (MARIALUISA) NEGATIVE (NEGATIVE) 03/10/20 17:15 - Allergies Allergies/Adverse Reactions: Allergies Allergy/AdvReac Type Severity Reaction Status Date / Time No Known Allergies Allergy Verified 07/04/17 22:17 - Blood Blood Available: Yes - Anesthesia Plan Pre-Op Medication Ordered: None - Acknowledgements Anesthesia Type Planned: Spinal Pt an Appropriate Candidate for the Planned Anesthesia: Yes Alternatives and Risks of Anesthesia Discussed w Pt/Guardian: Yes Pt/Guardian Understands and Agrees with Anesthesia Plan: Yes Additional Comments: Pt verbalized understanding consent obtained PreAnesthesia Questionnaire HEENT History: Reports: None Cardiovascular History: Reports: Hypertension 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: Musculoskeletal History: Reports: None Psychiatric History: Reports: Anxiety - Past Surgical History HEENT Surgical History: Reports: Oral Surgery Cardiovascular Surgical History: Reports: None Musculoskeletal Surgical History: Reports: Other (See Below) Other Musculoskeletal Surgeries/Procedures:: bunionectomy - HOME MEDS Home Medications: Home Meds Pnv No.95/Ferrous Fum/Folic AC [ Tablet] 1 tab PO DAILY 07/04/17 [History] - CURRENT (IN HOUSE) MEDS Current Meds: Current Medications Oxytocin/Sodium Chloride (Oxytocin 30 Unit/500 Ml-Ns) 30 unit in 500 mls @ 250 mls/hr IV TITRATE NICOLE Lactated Ringer's (Ringers, Lactated) 1,000 mls @ 500 mls/hr IV BOLUS NICOLE Sodium Chloride (Saline Flush) 10 ml FLUSH ASDIRECTED PRN PRN Reason: Keep Vein Open Sodium Chloride (Saline Flush) 2.5 ml FLUSH ASDIRECTED PRN PRN Reason: Keep Vein Open Sodium Chloride (Normal Saline) 10 ml IV ASDIRECTED PRN PRN Reason: IV Use Discontinued Medications Citric Acid/Sodium Citrate (Bicitra Solution) 30 ml PO ONETIME ONE Stop: 03/10/20 17:34 Cefazolin Sodium/Dextrose 2 gm (/ Premix) 50 mls @ 100 mls/hr IV ONETIME ONE Stop: 03/10/20 18:02
[2020-03-10] MEDS ORDERED: Ondansetron 4 MG/2 ML SDV ONE (19:06)
[2020-03-10] MEDS ORDERED: ePHEDrine 50 MG/ML SDV ONE (19:06)
[2020-03-10] MEDS ORDERED: Oxytocin 10 Units/1 ML SDV ONE ×2 (19:06→20:07)
[2020-03-10] MEDS ORDERED: Ketorolac 30 MG/ML SDV ONE (19:06)
[2020-03-10] MEDS ORDERED: Morphine PF 10 MG/10 ML SDV ONE (19:07)
[2020-03-10] MEDS ORDERED: ceFAZolin/Dextrose,Iso-Osmotic 2 GM/50 ML Duplex Bag IV ONE (19:43)
[2020-03-10] MEDS ORDERED: diphenhydrAMINE 50 MG/ML SDV IVPUSH PRN ×2 (20:40→20:47)
[2020-03-10] MEDS ORDERED: Lanolin 100% Cream 7 GM Tube TOP PRN (20:40)
[2020-03-10] MEDS ORDERED: Bisacodyl 10 MG Supp RECTAL PRN (20:40)
[2020-03-10] MEDS ORDERED: Oxytocin 10 Units/1 ML SDV IM PRN (20:40)
[2020-03-10] MEDS ORDERED: Tranexamic Acid 1,000 MG in Sodium Chloride 0.9% 100 ML IV PRN (20:40)
[2020-03-10] MEDS ORDERED: Misoprostol 200 MCG Tab RECTAL PRN (20:40)
[2020-03-10] MEDS ORDERED: Ondansetron 4 MG/2 ML SDV IVPUSH PRN ×2 (20:40→20:47)
[2020-03-10] MEDS ORDERED: Acetaminophen/oxyCODONE 325-5 MG Tab PO PRN ×2 (20:40→20:47)
[2020-03-10] MEDS ORDERED: Lactated Ringers 1,000 ML IV SCH (20:45)
[2020-03-10] MEDS ORDERED: fentaNYL 100 MCG/2 ML SDV IVPUSH PRN (20:47)
[2020-03-10] MEDS ORDERED: Nalbuphine 10 MG/1 ML Vial IVPUSH PRN (20:47)
[2020-03-10] MEDS ORDERED: Naloxone 0.4 MG/ML Syringe IVPUSH PRN (20:47)
--- NOTE | 2020-03-10 21:54 | OR ---
SURGEON: Shakila Chandler M.D. DATE OF PROCEDURE: 03/10/2020 PREOPERATIVE DIAGNOSES: 1. 37 weeks intrauterine . 2. Gestational hypertension. 3. Previous section, desires repeat. POSTOPERATIVE DIAGNOSES: 1. 37 weeks intrauterine . 2. Gestational hypertension. 3. Previous section, desires repeat. PROCEDURE: Repeat low transverse section. PRIMARY SURGEON: Shakila Chandler M.D. ANESTHESIA: Spinal. ESTIMATED BLOOD LOSS: 500 mL. FLUIDS: 1200 mL of crystalloid. COMPLICATIONS: None. FINDINGS: Viable male. score 8 at one minute, 8 at five minutes. Weight of 3840 g. Delivery, intact placenta, 3-vessel cord. DISPOSITION: Infant to nursery, mom in PACU, stable. PROCEDURE DETAILS: Molly is a 35-year-old female who presents to clinic today for routine OB care and was found to be hypertensive with systolic blood pressures in the 140s to 150s. She has a previous history of preeclampsia with first . The patient was then triaged to Labor and Delivery where she was monitored with serial blood pressures and she was found to have consistently elevated blood pressures with systolic in the 140s. She does have a mild headache. Given these findings and term gestation, the decision was made to proceed with the delivery. She has had a previous delivery and desires repeat. Risks of the procedure have been discussed with her. Proper consent obtained. The patient was taken to the operating room, where she underwent spinal anesthetic, was then placed in the supine position with leftward tilt. SCDs to the lower extremities. Dowling to gravity. She was prepped and draped in the usual sterile fashion. Ancef was given prophylactically. Time-out was performed. Anesthesia was tested and found to be adequate. Previous Pfannenstiel scar was now excised. Subcutaneous tissue was incised down to the level of the rectus fascia, which was incised in midline, lateralized on either side sharply and bluntly. The superior aspect of the fascia was tented upward, dissected sharply and bluntly away from underlying muscle. In a similar aspect, this was performed with the inferior aspect of fascia. Rectus muscles were now in midline. Peritoneum was entered and dissected sharply and bluntly. Rectus muscle and peritoneum were now lateralized bluntly. Uterine position and position palpated. Self-retaining retractor was gently placed. Uterovesical reflection was visualized. Bladder flap was created sharply and bluntly. Bladder was mobilized away from lower uterine segment. Low transverse hysterotomy was now performed. Uterine cavity was entered with blunt-ended scalpel. Hysterotomy was lateralized bluntly. Amniotomy performed. Clear fluid was returned. Infant's head was flexed. Fundal pressure was applied. The 's head was delivered followed by anterior shoulder, posterior shoulder, and remainder of the body without difficulty. The 's oropharynx and nares were bulb suctioned. After a delay, cord was clamped x2 and cut. Cord arterial, cord venous, cord blood sampling was obtained. The placenta was now delivered. Uterine cavity was cleared of all clot and debris. The hysterotomy was repaired using 0 Vicryl in a continuous running locked fashion followed by a re-imbricating layer. Any areas of serosal oozing were now cauterized. Uterus remained firm. Posterior aspect of the uterus inspected. No defects or hematomas found to be forming. Regions were well suction dried. Colonic gutters were cleared of all clot and debris, well irrigated and suction dried. Hysterotomy was once again inspected, found to be hemostatic. Hysterotomy was once again inspected and found to be hemostatic. Self-retaining retractor was now gently removed. Bladder blade was placed. Hysterotomy was once again inspected and found to be hemostatic. Peritoneum and rectus muscles were now reapproximated using 0 Vicryl in an inverted mattress suture technique. Anterior aspect of the muscle, posterior aspect of the fascia closely inspected. Any areas of oozing were cauterized. Rectus fascia was reapproximated using 0 Vicryl in continuous running fashion beginning laterally on either side and meeting in the midline. Subcutaneous tissues were now well irrigated, suction dried. Any areas of oozing were cauterized. Skin and subcutaneous tissues were reapproximated using 3-0 plain in continuous running fashion. The skin edges were reapproximated using 3-0 Monocryl in subcuticular fashion. Half-inch Steri-Strips and Mastisol were now placed. Uterus remained firm. Sponge, instrument, and needle counts were correct x2. The patient tolerated the procedure well overall. Her blood pressures remained normal after spinal anesthesia. She will go to PACU in stable condition. Infant to nursery. JUAN M / JALEEL /[id number]
--- NOTE | 2020-03-10 22:50 | PCM.OPNOTE ---
- General Post-Op/Procedure Note Date of Surgery/Procedure: 03/10/20 Operative Procedure(s): Repeat LTCS Findings: Viable male APGARs 8, 8 weight 3840 gm. Delivery intact placenta with 3V cord. Pre Op Diagnosis: 37 week IUP. Gestational HTN. Previous c section, desires repeat Post-Op Diagnosis: Same Anesthesia Technique: Spinal Primary Surgeon: Shakila Chandler Fluid Replacement, Intraop: 1,200 EBL in mLs: 700 Complications: none known Condition: Stable Free Text/Narrative:: Dictation [id number]
[2020-03-11] MEDS: Docusate Sodium 100 MG Cap PO SCH ×3 (00:32→22:09)
[2020-03-11] MEDS: Simethicone 80 MG Tab.Chew PO SCH ×2 (06:06)
--- NOTE | 2020-03-11 07:17 | PCM.POSTAN ---
POST ANESTHESIA ASSESSMENT - MENTAL STATUS Mental Status: Alert, Oriented - VITAL SIGNS Vital Signs: Last Vital Signs Temp 35.9 C L 03/11/20 01:30 Pulse 74 03/11/20 01:30 Resp 17 03/11/20 01:30 BP 138/91 H 03/11/20 01:30 Pulse Ox 95 03/11/20 01:30 - RESPIRATORY Respiratory Status: Respiratory Rate WNL, Airway Patent, O2 Saturation Stable - CARDIOVASCULAR CV Status: Pulse Rate WNL, Blood Pressure Stable - GASTROINTESTINAL GI Status: No Symptoms - PAIN Pain Score: 0 - POST OP HYDRATION Hydration Status: Adequate & Stable - OBSERVATIONS Free Text/Narrative:: No anesthesia problems
--- NOTE | 2020-03-11 07:34 | PCM48HPAN ---
Post Anesthesia Note - EVALUATION WITHIN 48HRS OF ANESTHETIC Vital Signs in Normal Range: Yes Patient Participated in Evaluation: Yes Respiratory Function Stable: Yes Airway Patent: Yes Cardiovascular Function Stable: Yes Hydration Status Stable: Yes Pain Control Satisfactory: Yes Nausea and Vomiting Control Satisfactory: Yes Mental Status Recovered: Yes Vital Signs: Last Vital Signs Temp 96.6 F L 03/11/20 01:30 Pulse 74 03/11/20 01:30 Resp 17 03/11/20 01:30 BP 138/91 H 03/11/20 01:30 Pulse Ox 95 03/11/20 01:30 - COMMENTS/OBSERVATIONS Free Text/Narrative:: Pt denies any anesthesia related problems. VSS
[2020-03-11] MEDS ORDERED: Ketorolac 30 MG/ML SDV IVPUSH SCH (09:00)
--- NOTE | 2020-03-11 10:11 | PCM.PNPP ---
- General Info Date of Service: 03/11/20 Subjective Update: Patient seen at bedside , she has good pain control , , normal lochia Normal urine output , guerrero still in She denies headache , RUQ pain and BV Hemoglobin 10 BP mild range no severe range Functional Status: Reports: Pain Controlled, Tolerating Diet, Ambulating, Incentive Spirometry - Review of Systems General: Reports: No Symptoms HEENT: Reports: No Symptoms Pulmonary: Reports: No Symptoms Cardiovascular: Reports: No Symptoms Gastrointestinal: Reports: No Symptoms Genitourinary: Reports: No Symptoms Musculoskeletal: Reports: No Symptoms Skin: Reports: No Symptoms Neurological: Reports: No Symptoms Psychiatric: Reports: No Symptoms - General Info Date of Service: 03/11/20 - Patient Data Vital Signs - Most Recent: Last Vital Signs Temp 36.8 C 03/11/20 08:14 Pulse 77 03/11/20 08:14 Resp 17 03/11/20 08:14 BP 138/80 03/11/20 08:14 Pulse Ox 100 03/11/20 08:14 Weight - Most Recent: 92.986 kg I&O - Last 24 Hours: Intake & Output 03/10/20 03/11/20 03/11/20 22:59 06:59 14:59 Intake Total 2700 Output Total 10 425 Balance 2690 -425 Lab Results - Last 24 Hours: Laboratory Results - last 24 hr 03/10/20 03/10/20 03/10/20 Range/Units 17:15 17:27 20:01 Hgb (12.0-16.0) g/dL Hct (36.0-46.0) % Cord ABG pH 7.227 (7.18-7.38) Cord ABG Base Excess -6 (-10--2) Cord VBG pH 7.274 (7.25-7.45) Cord VBG Base Excess -6 (-10--2) SARS-CoV-2 RNA (MARIALUISA) NEGATIVE (NEGATIVE) Blood Type O POSITIVE Antibody Screen NEGATIVE 03/11/20 Range/Units 06:33 Hgb 10.2 L (12.0-16.0) g/dL Hct 31.1 L (36.0-46.0) % Cord ABG pH (7.18-7.38) Cord ABG Base Excess (-10--2) Cord VBG pH (7.25-7.45) Cord VBG Base Excess (-10--2) SARS-CoV-2 RNA (MARIALUISA) (NEGATIVE) Blood Type Antibody Screen Med Orders - Current: Current Medications Bisacodyl (Dulcolax) 10 mg RECTAL ONETIME PRN PRN Reason: Constipation Diphenhydramine HCl (Benadryl) 25 mg IVPUSH Q6H PRN PRN Reason: Itching or Nausea Diphenhydramine HCl (Benadryl) 25 mg IVPUSH Q4H PRN PRN Reason: Itching Stop: 03/11/20 20:47 Docusate Sodium (Colace) 100 mg PO BID [facility] Last Admin: 03/11/20 09:40 Dose: 100 mg Documented by: Emollient Ointment (Lansinoh Hpa) 0 gm TOP ASDIRECTED PRN PRN Reason: Sore Nipples Fentanyl (Sublimaze) 50 mcg IVPUSH Q1H PRN PRN Reason: Pain (severe 7-10) Oxytocin/Sodium Chloride (Oxytocin 30 Unit/500 Ml-Ns) 30 unit in 500 mls @ 250 mls/hr IV TITRATE [facility] Lactated Ringer's (Ringers, Lactated) 1,000 mls @ 500 mls/hr IV BOLUS [facility] Last Admin: 03/10/20 19:31 Dose: 999 mls/hr Documented by: Lactated Ringer's (Ringers, Lactated) 1,000 mls @ 125 mls/hr IV ASDIRECTED [facility] Last Admin: 03/11/20 06:06 Dose: 125 mls/hr Documented by: Tranexamic Acid 1,000 mg/ (Sodium Chloride) 110 mls @ 660 mls/hr IV ONETIME PRN PRN Reason: Bleeding Ibuprofen (Motrin) 800 mg PO Q8H PRN PRN Reason: mild pain or fever Ketorolac Tromethamine (Toradol) 30 mg IVPUSH Q6H [facility] Stop: 03/11/20 21:01 Misoprostol (Cytotec) 1,000 mcg RECTAL ONETIME PRN PRN Reason: excessive bleeding Nalbuphine HCl (Nubain) 5 mg IVPUSH ASDIRECTED PRN PRN Reason: Itching Naloxone HCl (Narcan) 0.1 mg IVPUSH ONETIME PRN PRN Reason: Respiratory Depression Stop: 03/11/20 20:47 Ondansetron HCl (Zofran) 4 mg IVPUSH Q4H PRN PRN Reason: Nausea/Vomiting Ondansetron HCl (Zofran) 4 mg IVPUSH Q6H PRN PRN Reason: Nausea Oxycodone/Acetaminophen (Percocet 325-5 Mg) 1 tab PO Q4H PRN PRN Reason: Pain (moderate 4-6) Oxycodone/Acetaminophen (Percocet 325-5 Mg) 2 tab PO Q4H PRN PRN Reason: Pain (moderate 4-6) Oxycodone/Acetaminophen (Percocet 325-5 Mg) 2 tab PO Q6H PRN PRN Reason: Pain (moderate 4-6) Oxytocin (Pitocin) 10 unit IM ASDIRECTED PRN PRN Reason: Excessive Vaginal Bleeding Simethicone (Simethicone) 160 mg PO QID [facility] Last Admin: 03/11/20 06:06 Dose: 160 mg Documented by: Sodium Chloride (Saline Flush) 10 ml FLUSH ASDIRECTED PRN PRN Reason: Keep Vein Open Sodium Chloride (Saline Flush) 2.5 ml FLUSH ASDIRECTED PRN PRN Reason: Keep Vein Open Sodium Chloride (Normal Saline) 10 ml IV ASDIRECTED PRN PRN Reason: IV Use Discontinued Medications Cefazolin Sodium/Dextrose (Ancef) Confirm Administered Dose 2 gm IV .STK-MED ONE Stop: 03/10/20 19:44 Citric Acid/Sodium Citrate (Bicitra Solution) 30 ml PO ONETIME ONE Stop: 03/10/20 17:34 Ephedrine Sulfate (Ephedrine Sulfate) Confirm Administered Dose 50 mg .ROUTE .STK-MED ONE Stop: 03/10/20 19:07 Cefazolin Sodium/Dextrose 2 gm (/ Premix) 50 mls @ 100 mls/hr IV ONETIME ONE Stop: 03/10/20 18:02 Ketorolac Tromethamine (Toradol) Confirm Administered Dose 30 mg .ROUTE .STK-MED ONE Stop: 03/10/20 19:07 Ketorolac Tromethamine (Toradol) 30 mg IVPUSH Q6H [facility] Stop: 03/11/20 19:01 Last Admin: 03/11/20 02:45 Dose: 30 mg Documented by: Ketorolac Tromethamine (Toradol) 30 mg IVPUSH Q6H [facility] Stop: 03/12/20 03:01 Last Admin: 03/11/20 09:32 Dose: 30 mg Documented by: Morphine Sulfate (Duramorph Pf) Confirm Administered Dose 10 mg .ROUTE .STK-MED ONE Stop: 03/10/20 19:08 Ondansetron HCl (Zofran) Confirm Administered Dose 4 mg .ROUTE .STK-MED ONE Stop: 03/10/20 19:07 Oxytocin (Pitocin) Confirm Administered Dose 20 unit .ROUTE .STK-MED ONE Stop: 03/10/20 19:07 Oxytocin (Pitocin) Confirm Administered Dose 20 unit .ROUTE .STK-MED ONE Stop: 03/10/20 20:08 - Interaction Support Person: - Recovery Exam Fundal Tone: Firm Fundal Level: 1 Fingerbreadths Below Umbilicus Fundal Placement: Midline Lochia Amount: Small Lochia Color: Rubra/Red Perineum Description: Intact, Minimal Bruising/Swelling Episiotomy/Laceration: None Bladder Status: Indwelling Catheter in Place Urinary Elimination: Indwelling Catheter - Exam General: Alert HEENT: Pupils Equal Neck: Supple Lungs: Clear to Auscultation Cardiovascular: Regular Rate, Regular Rhythm GI/Abdominal Exam: Normal Bowel Sounds Wound/Incisions: Dressing Dry and Intact Neurological: No New Focal Deficit Psy/Mental Status: Alert - Problem List & Annotations (1) Gestational hypertension SNOMED Code(s): 15520116 Code(s): O13.9 - GESTATIONAL HTN W/O SIGNIFICANT PROTEINURIA, UNSP TRIMESTER Status: Acute Current Visit: No - Problem List Review Problem List Initiated/Reviewed/Updated: Yes - My Orders Last 24 Hours: My Active Orders 03/10/20 17:27 RPR (SYPHILIS SERO) W/ RFLX [REF] Routine 03/10/20 17:33 Notify Provider Vital Signs [RC] PRN Up ad Alejandra [RC] ASDIRECTED Verify Patient Consent Obtain [RC] ASDIRECTED Vital Signs [RC] PER UNIT ROUTINE Sodium Chloride 0.9% [Normal Saline] 10 ml IV ASDIRECTED PRN Sodium Chloride 0.9% [Saline Flush] 10 ml FLUSH ASDIRECTED PRN Sodium Chloride 0.9% [Saline Flush] 2.5 ml FLUSH ASDIRECTED PRN Peripheral IV Insertion Adult [OM.PC] Routine Schedule Procedure [COMM] Per Unit Routine Resuscitation Status Routine 03/10/20 17:45 Lactated Ringers [Ringers, Lactated] 1,000 ml IV BOLUS Oxytocin/0.9 % Sodium Chloride [Oxytocin 30 Unit/500 ML-NS] 30 unit in 500 ml IV TITRATE 03/10/20 18:22 Patient Status [ADT] Routine - Assessment Assessment:: 35yo P2 s/p repeat POD1 , ambulating , guerrero in normal urine output Normal lochia BP mild range Mild anemia - Plan Plan:: Regular diet Pain control as needed Encourage ambulation SCD while in bed Incentive spirometry Will start Lexapro Remove guerrero by Noon and follow void
[2020-03-11] MEDS: Escitalopram 10 MG Tab PO SCH (10:59)
[2020-03-11] MEDS: Ketorolac 30 MG/ML SDV IVPUSH SCH ×2 (15:22→22:09)
[2020-03-12] MEDS: Simethicone 80 MG Tab.Chew PO SCH ×3 (01:23→22:59)
[2020-03-12] MEDS: Ibuprofen 800 MG Tab PO PRN ×2 (10:34→22:57)
[2020-03-12] MEDS: Docusate Sodium 100 MG Cap PO SCH (10:35)
[2020-03-12] MEDS: Escitalopram 10 MG Tab PO SCH (10:35)
--- NOTE | 2020-03-12 13:30 | PCM.PNPP ---
- General Info Date of Service: 03/12/20 Subjective Update: Patient seen at bedside , she denies any complains she has good pain control without difficult Normal lochia Functional Status: Reports: Pain Controlled, Tolerating Diet, Ambulating, Urinating - Review of Systems General: Reports: No Symptoms HEENT: Reports: No Symptoms Pulmonary: Reports: No Symptoms Cardiovascular: Reports: No Symptoms Gastrointestinal: Reports: No Symptoms Genitourinary: Reports: No Symptoms Musculoskeletal: Reports: No Symptoms Skin: Reports: No Symptoms Neurological: Reports: No Symptoms Psychiatric: Reports: No Symptoms - General Info Date of Service: 03/12/20 - Patient Data Vital Signs - Most Recent: Last Vital Signs Temp 37.3 C 03/12/20 12:57 Pulse 91 03/12/20 12:57 Resp 18 03/12/20 12:57 BP 137/75 03/12/20 12:57 Pulse Ox 97 03/12/20 12:57 Weight - Most Recent: 92.986 kg Med Orders - Current: Current Medications Bisacodyl (Dulcolax) 10 mg RECTAL ONETIME PRN PRN Reason: Constipation Diphenhydramine HCl (Benadryl) 25 mg IVPUSH Q6H PRN PRN Reason: Itching or Nausea Docusate Sodium (Colace) 100 mg PO BID [facility] Last Admin: 03/12/20 10:35 Dose: 100 mg Documented by: Emollient Ointment (Lansinoh Hpa) 0 gm TOP ASDIRECTED PRN PRN Reason: Sore Nipples Escitalopram Oxalate (Lexapro) 10 mg PO DAILY [facility] Last Admin: 03/12/20 10:35 Dose: 10 mg Documented by: Fentanyl (Sublimaze) 50 mcg IVPUSH Q1H PRN PRN Reason: Pain (severe 7-10) Oxytocin/Sodium Chloride (Oxytocin 30 Unit/500 Ml-Ns) 30 unit in 500 mls @ 250 mls/hr IV TITRATE [facility] Lactated Ringer's (Ringers, Lactated) 1,000 mls @ 500 mls/hr IV BOLUS [facility] Last Admin: 03/10/20 19:31 Dose: 999 mls/hr Documented by: Lactated Ringer's (Ringers, Lactated) 1,000 mls @ 125 mls/hr IV ASDIRECTED [facility] Last Admin: 03/11/20 06:06 Dose: 125 mls/hr Documented by: Tranexamic Acid 1,000 mg/ (Sodium Chloride) 110 mls @ 660 mls/hr IV ONETIME PRN PRN Reason: Bleeding Ibuprofen (Motrin) 800 mg PO Q8H PRN PRN Reason: mild pain or fever Last Admin: 03/12/20 10:34 Dose: 800 mg Documented by: Misoprostol (Cytotec) 1,000 mcg RECTAL ONETIME PRN PRN Reason: excessive bleeding Nalbuphine HCl (Nubain) 5 mg IVPUSH ASDIRECTED PRN PRN Reason: Itching Ondansetron HCl (Zofran) 4 mg IVPUSH Q4H PRN PRN Reason: Nausea/Vomiting Ondansetron HCl (Zofran) 4 mg IVPUSH Q6H PRN PRN Reason: Nausea Oxycodone/Acetaminophen (Percocet 325-5 Mg) 1 tab PO Q4H PRN PRN Reason: Pain (moderate 4-6) Oxycodone/Acetaminophen (Percocet 325-5 Mg) 2 tab PO Q4H PRN PRN Reason: Pain (moderate 4-6) Oxycodone/Acetaminophen (Percocet 325-5 Mg) 2 tab PO Q6H PRN PRN Reason: Pain (moderate 4-6) Oxytocin (Pitocin) 10 unit IM ASDIRECTED PRN PRN Reason: Excessive Vaginal Bleeding Simethicone (Simethicone) 160 mg PO QID [facility] Last Admin: 03/12/20 06:00 Dose: Not Given Documented by: Sodium Chloride (Saline Flush) 10 ml FLUSH ASDIRECTED PRN PRN Reason: Keep Vein Open Sodium Chloride (Saline Flush) 2.5 ml FLUSH ASDIRECTED PRN PRN Reason: Keep Vein Open Sodium Chloride (Normal Saline) 10 ml IV ASDIRECTED PRN PRN Reason: IV Use Discontinued Medications Cefazolin Sodium/Dextrose (Ancef) Confirm Administered Dose 2 gm IV .STK-MED ONE Stop: 03/10/20 19:44 Citric Acid/Sodium Citrate (Bicitra Solution) 30 ml PO ONETIME ONE Stop: 03/10/20 17:34 Diphenhydramine HCl (Benadryl) 25 mg IVPUSH Q4H PRN PRN Reason: Itching Stop: 03/11/20 20:47 Ephedrine Sulfate (Ephedrine Sulfate) Confirm Administered Dose 50 mg .ROUTE .STK-MED ONE Stop: 03/10/20 19:07 Cefazolin Sodium/Dextrose 2 gm (/ Premix) 50 mls @ 100 mls/hr IV ONETIME ONE Stop: 03/10/20 18:02 Ketorolac Tromethamine (Toradol) Confirm Administered Dose 30 mg .ROUTE .STK-MED ONE Stop: 03/10/20 19:07 Ketorolac Tromethamine (Toradol) 30 mg IVPUSH Q6H [facility] Stop: 03/11/20 19:01 Last Admin: 03/11/20 02:45 Dose: 30 mg Documented by: Ketorolac Tromethamine (Toradol) 30 mg IVPUSH Q6H [facility] Stop: 03/12/20 03:01 Last Admin: 03/11/20 09:32 Dose: 30 mg Documented by: Ketorolac Tromethamine (Toradol) 30 mg IVPUSH Q6H [facility] Stop: 03/11/20 21:01 Last Admin: 03/11/20 22:09 Dose: 30 mg Documented by: Morphine Sulfate (Duramorph Pf) Confirm Administered Dose 10 mg .ROUTE .STK-MED ONE Stop: 03/10/20 19:08 Naloxone HCl (Narcan) 0.1 mg IVPUSH ONETIME PRN PRN Reason: Respiratory Depression Stop: 03/11/20 20:47 Ondansetron HCl (Zofran) Confirm Administered Dose 4 mg .ROUTE .STK-MED ONE Stop: 03/10/20 19:07 Oxytocin (Pitocin) Confirm Administered Dose 20 unit .ROUTE .STK-MED ONE Stop: 03/10/20 19:07 Oxytocin (Pitocin) Confirm Administered Dose 20 unit .ROUTE .STK-MED ONE Stop: 03/10/20 20:08 - Infant Interaction Support Person: - Recovery Exam Fundal Tone: Firm Fundal Level: 1 Fingerbreadths Below Umbilicus Fundal Placement: Midline Lochia Amount: Scant Lochia Color: Rubra/Red Perineum Description: Intact, Minimal Bruising/Swelling Episiotomy/Laceration: None Bladder Status: Voiding Urinary Elimination: Indwelling Catheter - Exam General: Alert HEENT: Pupils Equal Neck: Supple Lungs: Clear to Auscultation Cardiovascular: Regular Rate, Regular Rhythm GI/Abdominal Exam: Normal Bowel Sounds Wound/Incisions: Dressing Dry and Intact Neurological: No New Focal Deficit Psy/Mental Status: Alert - Problem List & Annotations (1) Gestational hypertension SNOMED Code(s): 22664507 Code(s): O13.9 - GESTATIONAL HTN W/O SIGNIFICANT PROTEINURIA, UNSP TRIMESTER Status: Acute Current Visit: No - Problem List Review Problem List Initiated/Reviewed/Updated: Yes - My Orders Last 24 Hours: My Active Orders 03/12/20 09:48 Ready for Discharge [RC] PER UNIT ROUTINE - Assessment Assessment:: 35yo P2 s/p repeat POD2 , stable , - Plan Plan:: Regular diet Pain control as needed Encourage ambulation Discharge home today
[2020-03-12] MEDS: Acetaminophen/oxyCODONE 325-5 MG Tab PO PRN (22:59)
--- NOTE | 2020-03-13 00:59 | PCM.PNPP ---
- General Info Date of Service: 03/13/20 Subjective Update: Patient seen at bedside , she denies any complains she has good pain control without difficult Normal lochia Functional Status: Reports: Pain Controlled, Tolerating Diet, Ambulating, Urinating - Review of Systems General: Reports: No Symptoms HEENT: Reports: No Symptoms Pulmonary: Reports: No Symptoms Cardiovascular: Reports: No Symptoms Gastrointestinal: Reports: No Symptoms Genitourinary: Reports: No Symptoms Musculoskeletal: Reports: No Symptoms Skin: Reports: No Symptoms Neurological: Reports: No Symptoms Psychiatric: Reports: No Symptoms - General Info Date of Service: 03/13/20 - Patient Data Vital Signs - Most Recent: Last Vital Signs Temp 36.8 C 03/13/20 00:02 Pulse 72 03/13/20 00:02 Resp 16 03/13/20 00:02 BP 135/85 03/13/20 00:02 Pulse Ox 97 03/13/20 00:02 Weight - Most Recent: 92.986 kg Med Orders - Current: Current Medications Bisacodyl (Dulcolax) 10 mg RECTAL ONETIME PRN PRN Reason: Constipation Diphenhydramine HCl (Benadryl) 25 mg IVPUSH Q6H PRN PRN Reason: Itching or Nausea Docusate Sodium (Colace) 100 mg PO BID [facility] Last Admin: 03/12/20 10:35 Dose: 100 mg Documented by: Emollient Ointment (Lansinoh Hpa) 0 gm TOP ASDIRECTED PRN PRN Reason: Sore Nipples Escitalopram Oxalate (Lexapro) 10 mg PO DAILY [facility] Last Admin: 03/12/20 10:35 Dose: 10 mg Documented by: Fentanyl (Sublimaze) 50 mcg IVPUSH Q1H PRN PRN Reason: Pain (severe 7-10) Oxytocin/Sodium Chloride (Oxytocin 30 Unit/500 Ml-Ns) 30 unit in 500 mls @ 250 mls/hr IV TITRATE [facility] Lactated Ringer's (Ringers, Lactated) 1,000 mls @ 500 mls/hr IV BOLUS [facility] Last Admin: 03/10/20 19:31 Dose: 999 mls/hr Documented by: Lactated Ringer's (Ringers, Lactated) 1,000 mls @ 125 mls/hr IV ASDIRECTED [facility] Last Admin: 03/11/20 06:06 Dose: 125 mls/hr Documented by: Tranexamic Acid 1,000 mg/ (Sodium Chloride) 110 mls @ 660 mls/hr IV ONETIME PRN PRN Reason: Bleeding Ibuprofen (Motrin) 800 mg PO Q8H PRN PRN Reason: mild pain or fever Last Admin: 03/12/20 22:57 Dose: 800 mg Documented by: Misoprostol (Cytotec) 1,000 mcg RECTAL ONETIME PRN PRN Reason: excessive bleeding Nalbuphine HCl (Nubain) 5 mg IVPUSH ASDIRECTED PRN PRN Reason: Itching Ondansetron HCl (Zofran) 4 mg IVPUSH Q4H PRN PRN Reason: Nausea/Vomiting Ondansetron HCl (Zofran) 4 mg IVPUSH Q6H PRN PRN Reason: Nausea Oxycodone/Acetaminophen (Percocet 325-5 Mg) 1 tab PO Q4H PRN PRN Reason: Pain (moderate 4-6) Last Admin: 03/12/20 22:59 Dose: 1 tab Documented by: Oxycodone/Acetaminophen (Percocet 325-5 Mg) 2 tab PO Q4H PRN PRN Reason: Pain (moderate 4-6) Oxycodone/Acetaminophen (Percocet 325-5 Mg) 2 tab PO Q6H PRN PRN Reason: Pain (moderate 4-6) Oxytocin (Pitocin) 10 unit IM ASDIRECTED PRN PRN Reason: Excessive Vaginal Bleeding Simethicone (Simethicone) 160 mg PO QID [facility] Last Admin: 03/12/20 22:59 Dose: 160 mg Documented by: Sodium Chloride (Saline Flush) 10 ml FLUSH ASDIRECTED PRN PRN Reason: Keep Vein Open Sodium Chloride (Saline Flush) 2.5 ml FLUSH ASDIRECTED PRN PRN Reason: Keep Vein Open Sodium Chloride (Normal Saline) 10 ml IV ASDIRECTED PRN PRN Reason: IV Use Discontinued Medications Cefazolin Sodium/Dextrose (Ancef) Confirm Administered Dose 2 gm IV .STK-MED ONE Stop: 03/10/20 19:44 Citric Acid/Sodium Citrate (Bicitra Solution) 30 ml PO ONETIME ONE Stop: 03/10/20 17:34 Diphenhydramine HCl (Benadryl) 25 mg IVPUSH Q4H PRN PRN Reason: Itching Stop: 03/11/20 20:47 Ephedrine Sulfate (Ephedrine Sulfate) Confirm Administered Dose 50 mg .ROUTE .STK-MED ONE Stop: 03/10/20 19:07 Cefazolin Sodium/Dextrose 2 gm (/ Premix) 50 mls @ 100 mls/hr IV ONETIME ONE Stop: 03/10/20 18:02 Ketorolac Tromethamine (Toradol) Confirm Administered Dose 30 mg .ROUTE .STK-MED ONE Stop: 03/10/20 19:07 Ketorolac Tromethamine (Toradol) 30 mg IVPUSH Q6H [facility] Stop: 03/11/20 19:01 Last Admin: 03/11/20 02:45 Dose: 30 mg Documented by: Ketorolac Tromethamine (Toradol) 30 mg IVPUSH Q6H [facility] Stop: 03/12/20 03:01 Last Admin: 03/11/20 09:32 Dose: 30 mg Documented by: Ketorolac Tromethamine (Toradol) 30 mg IVPUSH Q6H [facility] Stop: 03/11/20 21:01 Last Admin: 03/11/20 22:09 Dose: 30 mg Documented by: Morphine Sulfate (Duramorph Pf) Confirm Administered Dose 10 mg .ROUTE .STK-MED ONE Stop: 03/10/20 19:08 Naloxone HCl (Narcan) 0.1 mg IVPUSH ONETIME PRN PRN Reason: Respiratory Depression Stop: 03/11/20 20:47 Ondansetron HCl (Zofran) Confirm Administered Dose 4 mg .ROUTE .STK-MED ONE Stop: 03/10/20 19:07 Oxytocin (Pitocin) Confirm Administered Dose 20 unit .ROUTE .STK-MED ONE Stop: 03/10/20 19:07 Oxytocin (Pitocin) Confirm Administered Dose 20 unit .ROUTE .STK-MED ONE Stop: 03/10/20 20:08 - Interaction Support Person: - Recovery Exam Fundal Tone: Firm Fundal Level: 1 Fingerbreadths Below Umbilicus Fundal Placement: Midline Lochia Amount: Small Lochia Color: Rubra/Red Perineum Description: Intact, Minimal Bruising/Swelling Episiotomy/Laceration: None Bladder Status: Voiding Urinary Elimination: Voided - Exam General: Alert HEENT: Pupils Equal Neck: Supple Lungs: Clear to Auscultation Cardiovascular: Regular Rate, Regular Rhythm GI/Abdominal Exam: Normal Bowel Sounds Neurological: No New Focal Deficit Psy/Mental Status: Alert - Problem List & Annotations (1) Gestational hypertension SNOMED Code(s): 72890164 Code(s): O13.9 - GESTATIONAL HTN W/O SIGNIFICANT PROTEINURIA, UNSP TRIMESTER Status: Acute Current Visit: No - Problem List Review Problem List Initiated/Reviewed/Updated: Yes - Assessment Assessment:: 35yo P2 s/p repeat POD3 , stable , - Plan Plan:: Regular diet Pain control as needed Encourage ambulation Discharge home today
[2020-03-13] MEDS: Acetaminophen/oxyCODONE 325-5 MG Tab PO PRN ×2 (04:25→13:23)
[2020-03-13] MEDS: Ibuprofen 800 MG Tab PO PRN ×2 (09:11→16:55)
[2020-03-13] MEDS: Escitalopram 10 MG Tab PO SCH (09:11)
[2020-03-13] MEDS: Docusate Sodium 100 MG Cap PO SCH ×3 (09:11→20:10)
[2020-03-13] MEDS: Simethicone 80 MG Tab.Chew PO SCH ×6 (13:21→22:56)
== END 2020-03-13 23:00 | disposition home or self-care (01) | DRG 540 ==
LOC: MW.OBCHECK 16:43 → MW.OB 18:39
PROVIDERS: ADMIT Obstetrics & Gynecology; ATTEND Obstetrics & Gynecology
PROC: 10D00Z1 Extraction of Products of Conception, Low, Open Approach (ICD-10-PCS; principal; 2020-03-10)
DX: O13.4 Gestational [pregnancy-induced] hypertension without significant proteinuria, complicating childbirth (principal); Z3A.37 37 weeks gestation of pregnancy; Z37.0 Single live birth; O34.211 Maternal care for low transverse scar from previous cesarean delivery; Z20.828 Contact with and (suspected) exposure to other viral communicable diseases
CPT/HCPCS: 01961; 36415; 59025; 82803; 85014; 85018; 86592; 86850; 86900; 86901; 88307; A9270-GY; J0690; J1885; J2270; J2405; J2590; J7120; U0002

== ENCOUNTER 2022-10-09 06:43 | Emergency (ER) | payer BC | END 2022-10-09 07:55 | disposition home or self-care (01) | LOC: MW.ED 06:43 | DX: Z18.89 Other specified retained foreign body fragments (principal); I10 Essential (primary) hypertension | CPT/HCPCS: 99282; 99283 ==